=== PATIENT | female | born 1945 | race Caucasian/White ===

== ENCOUNTER 2022-03-12 09:43 | Outpatient (REF) | payer MEDICAID, SELFPAY ==
--- NOTE | 2022-03-12 13:36 | MHC.AU.ANH ---
Adult Audiological Evaluation Date of Visit: 03/12/22 Reason for Appointment: History of hearing loss. Patient arrives to determine if there has been a change in hearing. She obtained hearing aids in 2018 from [facility]. Previous Hearing Test Results: Results were not available for immediate review Ear History: Ear Deformity: None Reported Recent Ear Drainage: None Reported Recent Ear Pain: None Reported Family History of Hearing Loss?: Yes: Parents, Siblings Recent Ear Infections: None Reported Ear Infections in Childhood: None Reported History of Ear Wax Buildup: None Reported Previous Ear Surgery: None Reported Bothersome Tinnitus/Ringing/Noises in Ears: None Reported Ear used on the phone: Right Ear Blocked/Full Sensation in Ear(s): None Reported History of occupational noise exposure?: No History: No Medical History: Medical History: Eye surgery 2019 Hearing Instrument History- Right Ear: Mica Builder: Oticon Model: OPN 2 miniRITE T Serial Number: [id number] Battery Size: 312 Repair Warranty: Loss and Damage Warranty: Dispensed By: [facility] Date of Fitting: Per [facility], shipped in 10/2017 Hearing Instrument History- Left Ear: Mica Builder: Oticon Model: OPN 2 miniRITE T Serial Number: [id number] Battery Size: 312 Warranty: Loss and Damage Warranty: Dispensed By: [facility] Date of Fitting: Per [facility], shipped in 10/2017 Otoscopy: Right Ear: Unremarkable Left Ear: Unremarkable Tympanometry: Tympanometry performed due to: To assess integrity of the middle ear system Right Ear: Hypercompliant Middle Ear System (Type Ad) Left Ear: Normal Middle Ear System (Type A) Hearing Evaluation: Transducer(s) Used: Insert Earphones Method: Conventional Audiometry Stimuli Used: Pure Tones Right Ear: Description of Hearing: Moderate to severe sensorineural hearing loss Left Ear: Description of Hearing: Moderate to severe sensorineural hearing loss Speech Recognition Threshold (SRT): Method Used: Monitored Live Voice Stimuli Used: Spondee Words Right Ear: 55 dBHL Left Ear: 45 dBHL Word Discrimination: Method: Recorded Lists Word Lists Used: W-22 Right Ear: 84% at 85 dBHL Left Ear: 92% at 85 dBHL Most Comfortable Level (MCL): Right Ear: 85 dBHL Left Ear: 85 dBHL Recommendations: Audiological re-evaluation in one year. See Hearing Aid Follow-Up note for more information. Diagnosis: Primary Diagnosis: H90.3 Bilateral Sensorineural Hearing Loss Signature: Provider: Bryce Mandel, [facility]
--- NOTE | 2022-03-12 13:37 | MHC.AU.HFU ---
Hearing Instrument Follow-Up- Binaural Date of Visit: 03/12/22 Right Ear: Biztalk Developer: Oticon Model: OPN 2 miniRITE T Serial Number: [id number] Repair Warranty: Loss and Damage Warranty: Battery Size: 312 Type of Mold: Custom Oticon mold Dispensed By: [facility] Date of Fitting: Per [employer], shipped in 10/2017 Left Ear: Biztalk Developer: Oticon Model: OPN 2 miniRITE T Serial Number: [id number] Repair Warranty: Loss and Damage Warranty: Battery Size: 312 Type of Mold: Custom Oticon mold Dispensed By: [facility] Date of Fitting: Per [employer], shipped in 10/2017 Follow-Up Summary: Patient was seen for audiological evaluation (see separate report for details). She is transferring her hearing aid care to our clinic. She received her hearing aids from the [facility] in early 2017 (shipped in 10/2017, per [employer]). Hearing aid maintenance performed. Molds cleaned. Wax guards replaced. Microphones vacuumed. Hearing aids are amplifying clearly. Hearing aid programming was uploaded to [employer]. The hearing aid programming was then updated for today's results; however, this appeared to bring the high frequency down lower than expected. Patient was pleased with how the hearing aids sounded previously. Returned the programming to how it was initially, but raised gain 2 steps in the left instrument at 2-4 kHz to reflect today's test. Recommendations: Audio RV in March 2023. Hearing aid follow-up as needed. Diagnosis Code(s): Primary Diagnosis: H90.3 Bilateral Sensorineural Hearing Loss Signature: Provider: Bryce Mandel, [facility]
== END 2022-03-12 09:44 | disposition home or self-care (01) ==
LOC: HO.SH 09:43
PROVIDERS: Visit Provider Physician Assistant Medical
DX: Z01.118 Encounter for examination of ears and hearing with other abnormal findings (principal); Z46.1 Encounter for fitting and adjustment of hearing aid; H90.3 Sensorineural hearing loss, bilateral
CPT/HCPCS: 92557; 92567; 92593; V5011

== ENCOUNTER 2022-12-02 15:33 | Outpatient (REF) | payer MEDICAID, SELFPAY | END 2022-12-02 15:34 | disposition home or self-care (01) | LOC: HO.HAP 15:33 | PROVIDERS: Visit Provider Internal Medicine | DX: Z46.1 Encounter for fitting and adjustment of hearing aid (principal); H90.3 Sensorineural hearing loss, bilateral | CPT/HCPCS: V5266 ==

== ENCOUNTER 2023-03-14 09:27 | Outpatient (REF) | payer MEDICAID, SELFPAY ==
--- NOTE | 2023-03-14 11:00 | MHC.AU.HA1 ---
Hearing Aid Evaluation Date of Visit: 03/14/23 Campground Manager Used: Not Applicable Historical Information: Description of Hearing: Moderate to severe bilateral sensorineural hearing loss. Current personal amplification information, if applicable: Patient recently lost her binaural Oticon OPN 2 mini RITE T hearing aids Summary: Laura needs new hearing aids to replace her 2018 hearing aids which were lost during her trip to [place]. Hearing Aid Prescription: Based on the individual?s shared listening needs, communication environments, dexterity, desire for connectivity, and personal preferences, the following prescription for amplification has been made: Right ear: Make, Model, Color: Oticon Real 2 mini RITE-R Steel Webb (92) Battery Size: Rechargeable Geotechnical Field Technician/Slim Tube: #3 85 gain Type of Earmold/Dome/CShell/SlimTip: Custom Oticon mold Left ear: Left ear prescription to be same as Right Hearing Aid above: Make, Model, Color: Oticon Real 2 mini RITE-R Steel Webb (92) Battery Size: 312 Geotechnical Field Technician/Slim Tube: #3 85 gain Type of Earmold/Dome/CShell/SlimTip: Custom Oticon mold Plan of Care: Patient wishes to purchase hearing aids as prescribed Action Taken/Action Needed:Earmold Impressions Taken, Medical Clearance to be requested from PCP/ENT Hearing Instrument Fitting to be scheduled when materials arrive Primary Diagnosis: H90.3 Bilateral Sensorineural Hearing Loss Signature:Provider: Lyn Huitron, [facility]
--- NOTE | 2023-03-14 11:08 | MHC.AU.MED ---
Medical Clearance for Hearing Instrumentation Date: 03/14/23 Patient Name: Laura Cobb Date of : 1945 Primary Care Provider: Referring Provider: Shana Enrique MD We have seen your patient on 03/14/23 and have determined that they are a candidate for amplification (See accompanying report). Specifically, they would benefit from: Hearing aid use in both ears There is a statute that addresses Medical Evaluation Requirements prior to fitting a patient with a hearing aid. According to [place] statute 265 CMR:6.03(1), (a) General. Except as provided in 265 CMR 6.03(1)(b), a mental hygienist shall not sell a hearing aid unless the prospective user has presented to the mental hygienist a written statement signed by a licensed physician that states that the patient's hearing loss has been medically evaluated and the patient may be considered a candidate for a hearing aid. The medical evaluation must have taken place within the preceding six months. Please note: Due to the [place] Statute referenced above, we cannot accept a signature other than that of a licensed physician. LINE PATROLMAN and PA signatures cannot be accepted. I am in agreement with the above recommendation. There is no medical contraindication for hearing instrumentation. Physician Signature Date Physician Name (Printed)
== END 2023-03-14 09:28 | disposition home or self-care (01) ==
LOC: HO.SH 09:27
PROVIDERS: Visit Provider Internal Medicine
DX: H90.3 Sensorineural hearing loss, bilateral (principal)
CPT/HCPCS: 92557; 92567; 92591; V5275

== ENCOUNTER 2023-05-18 14:29 | Outpatient (REF) | payer MEDICAID, SELFPAY | END 2023-05-18 14:30 | disposition home or self-care (01) | LOC: HO.HAP 14:29 | PROVIDERS: Visit Provider Internal Medicine | DX: Z46.1 Encounter for fitting and adjustment of hearing aid (principal); H90.3 Sensorineural hearing loss, bilateral | CPT/HCPCS: 92595; V5011; V5020; V5160; V5261 ==

== ENCOUNTER 2023-06-15 09:59 | Outpatient (REF) | payer MEDICAID, SELFPAY | END 2023-06-15 10:00 | disposition home or self-care (01) | LOC: HO.HAP 09:59 | PROVIDERS: Visit Provider Internal Medicine | DX: Z13.89 Encounter for screening for other disorder (principal) ==

== ENCOUNTER 2024-01-05 09:05 | Outpatient (REF) | payer MEDICAID, SELFPAY | END 2024-01-05 09:06 | disposition home or self-care (01) | LOC: HO.HAP 09:05 | PROVIDERS: Visit Provider Internal Medicine | DX: Z13.89 Encounter for screening for other disorder (principal) ==

== ENCOUNTER 2024-01-05 09:36 | Outpatient (REF) | payer SELFPAY | END 2024-01-05 09:37 | disposition home or self-care (01) | LOC: HO.HAP 09:36 | PROVIDERS: Visit Provider Internal Medicine | DX: Z46.1 Encounter for fitting and adjustment of hearing aid (principal); H90.3 Sensorineural hearing loss, bilateral | CPT/HCPCS: V5267 ==